=== PATIENT | female | born 1945 | race Caucasian/White ===

== ENCOUNTER → 2016-06-27 | Outpatient (CLI) | payer BC ==
[~2016-06-27] MED LIST: ASPCH81X PO; ESTR1CRE PV; FNCG50 TOP; RSTOPS OP; [UNRECOGNIZED DRUG - CODE] TOP
--- NOTE | 2016-06-27 14:08 | MAMMOGRAPHY REPORT ---
BILATERAL DIGITAL SCREENING MAMMOGRAM WITH CAD: 06/27/2016 CLINICAL HISTORY: Routine screening. Patient has no complaints. TECHNIQUE: Bilateral CC and MLO views were obtained. Current study was also evaluated with a Compu ter Aided Detection (CAD) system. COMPARISON: Comparison is made to exams dated: 07/08/2014 mammogram, 06/25/2012 mammogram - [facility], 06/23/2009 mammogram, 06/12/2010 mammogram - [facility], 06/21/2011 mamm ogram, and 07/01/2013 mammogram - [facility]. BREAST COMPOSITION: There are scattered areas of fibroglandular density in both breasts. FINDINGS: A 6 m asymmetry in the lateral anterior right breast is stable dating back to at least 200 8, therefore likely benign. An ovoid dense mass that is incompletely visualized projecting over the inferior pectoralis muscle on the MLO view appears very similar to an XCCL view performed 1, most likely a normal lymph node. There are a few scattered stable round microcalcifications. No new suspicious mass, architectural distortion or cluster of microcalcifications is seen. IMPRESSION: ACR BI-RADS CATEGORY 1: NEGATIVE There is no mammographic evidence of malignancy. A 1 year screening mammogram is recommended. The p atient will receive written notification of the results. Approximately 10% of breast cancers are not detected with mammography. A negative mammographic repor t should not delay biopsy if a clinically suggestive mass is present. Dawna Mejia M.D. ay/:06/27/2016 12:09:27 Destaticizer Feeder: Jazzy FARLEY(Shantel)(Greta), [facility] letter sent: Normal 1/2 BI-RADS Code: ACR BI-RADS Category 1: Negative
== END | disposition home or self-care (01) ==
LOC: C.MAMM 11:01
PROVIDERS: ATTEND Family Medicine
DX: Z12.31 Encounter for screening mammogram for malignant neoplasm of breast (principal)

== ENCOUNTER → 2016-08-28 | Outpatient (CLI) | payer BC ==
--- NOTE | 2016-08-28 09:46 | DIAGNOSTIC IMAGING REPORT ---
L-SPINE MIN 4 VIEWS ROUTINE CLINICAL HISTORY: Low back pain COMPARISON STUDY: No previous studies for comparison. FINDINGS: There are degenerative changes present with disc space narrowing at the L5-S1 level. No fractures or subluxations are visualized. No destructive lesions are evident. IMPRESSION: Mild degenerative changes most pronounced the L5-S1 level. No fractures, subluxations, or destructive lesions are visualized. Electronically signed by: Peña Vargas M.D. 08/28/2016 9:45 AM Dictated Date/Time: 08/28/2016 9:44 AM
== END | disposition home or self-care (01) ==
LOC: C.RAD1850 09:21
PROVIDERS: ATTEND Family Medicine
DX: M54.16 Radiculopathy, lumbar region (principal)

== ENCOUNTER → 2016-09-10 | Outpatient (CLI) | payer BC ==
--- NOTE | 2016-09-10 13:04 | DIAGNOSTIC IMAGING REPORT ---
MRI OF LUMBAR SPINE WITHOUT IV CONTRAST CLINICAL HISTORY: Chronic low back pain. Left leg pain. COMPARISON STUDY: Radiographs of the lumbar spine dated 08/28/2016. TECHNIQUE: MRI of the lumbar spine is performed utilizing various T1 and T2-weighted sequences in the axial and sagittal planes. IV contrast was not administered for this examination. FINDINGS: Lumbar spine: Vertebral body height is maintained throughout the lumbar spine. There is minimal anterolisthesis of L4-L5. Alignment is otherwise preserved. The transverse and spinous processes appear intact. There is no evidence of spondylolysis. Small anterior osteophytes are present in the lower lumbar spine. Mild chronic degenerative endplate changes are noted at L3-L4, L4-L5, and L5-S1. Mild degenerative endplate edema is seen at L5-S1. No destructive bony lesion is seen. Intervertebral discs: Degenerative disc desiccation is seen throughout the lumbar spine. There is mild loss of height at L5-S1. The remaining disc spaces appear preserved. Spinal cord: The visualized spinal cord is normal in morphology and signal intensity. The conus medullaris terminates at the level of L1. The nerve roots of the cauda equina are normal in morphology. L1-L2: Unremarkable. L2-L3: Unremarkable. L3-L4: There is minimal disc bulge eccentric to the left. The central canal and neural foramina are widely patent. Facet arthropathy is of no consequence. L4-L5: There is minimal posterior disc bulge. The central canal is clear, as are the neural foramina. Facet arthropathy is of no consequence. L5-S1: There is a posterior disc bulge eccentric to the left with annular fissure. The central canal is patent. There is left-sided subarticular stenosis. The disc bulge may abut the exiting left L5 and the transiting left S1 nerve roots. Facet arthropathy is of no consequence. The neural foramina are patent. Sacrum: The visualized sacrum is normal in morphology and signal intensity. Soft tissues: The paraspinous soft tissues are within normal limits. The partially imaged retroperitoneal structures are grossly unremarkable, but incompletely assessed. IMPRESSION: 1. Degenerative disc disease as above. There is mild endplate edema at L5-S1. 2. There is a small posterior disc bulge eccentric to the left at L5-S1. This may abut the exiting L5 and transiting left S1 nerve roots. 3. Minimal spondylotic change at additional levels as detailed above. See discussion for level by level analysis. There is no significant acquired compromise of the central canal. Dictated: 09/10/2016 12:32 PM Transcribed: 09/10/2016 1:03 PM [email or web address] Electronically signed by: Bijan Chou M.D. 09/10/2016 1:08 PM Dictated Date/Time: 09/10/2016 12:32 PM
== END | disposition home or self-care (01) ==
LOC: C.MRI 09:46
PROVIDERS: ATTEND Family Medicine
DX: M51.16 Intervertebral disc disorders with radiculopathy, lumbar region (principal)

== ENCOUNTER → 2017-06-28 | Outpatient (CLI) | payer BC ==
--- NOTE | 2017-06-28 13:23 | MAMMOGRAPHY REPORT ---
BILATERAL DIGITAL SCREENING MAMMOGRAM TOMOSYNTHESIS WITH CAD: 06/28/2017 CLINICAL HISTORY: Routine screening. TECHNIQUE: Breast tomosynthesis in addition to standard 2D mammography was performed. Current study was also evaluated with a Computer Aided Detection (CAD) system. COMPARISON: Comparison is made to exams dated: 06/27/2016 mammogram - [facility], mammogram, 07/01/2013 mammogram, 06/25/2012 mammogram, 06/21/2011 mammogram - [facility], and 06/12/2010 mammogram - [facility]. BREAST COMPOSITION: There are scattered areas of fibroglandular density in both breasts. FINDINGS: No suspicious masses, calcifications, or areas of architectural distortion are noted in ei ther breast. There has been no significant interval change compared to prior exams. Nodular asymmetr y in the right lateral breast is stable dating back to at least the 2009 exam. A linear scar marker denotes a scar on the left upper outer breast. Scattered benign-appearing left breast calcifications are stable. IMPRESSION: ACR BI-RADS CATEGORY 2: BENIGN There is no mammographic evidence of malignancy. A 1 year screening mammogram is recommended. The pa tient will receive written notification of the results. Approximately 10% of breast cancers are not detected with mammography. A negative mammographic report should not delay biopsy if a clinically suggestive mass is present. Yolanda Canela M.D. /:06/28/2017 11:43:33 Methods And Procedures Analyst: Hortencia FARLEY(Shantel)(Greta), [facility] letter sent: Normal 1/2 BI-RADS Code: ACR BI-RADS Category 2: Benign
== END | disposition home or self-care (01) ==
LOC: C.MAMM 10:08
PROVIDERS: ATTEND Family Medicine
DX: Z12.31 Encounter for screening mammogram for malignant neoplasm of breast (principal)